=== PATIENT | male | born 1945 | race Caucasian/White ===

== ENCOUNTER 2017-05-19 20:05 | Emergency (ER) | payer MEDICARE ==
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
[2017-05-19] MEDS ORDERED: ASPIRIN 81 MG TAB.CHEW PO ONE (20:20)
[2017-05-19] MEDS ORDERED: ASPIRIN 81 MG TAB.CHEW ONE (20:26)
[2017-05-19 20:40] LABS: Hematocrit 43.6 % (42.0-52.0); Hemoglobin 14.5 gm/dL (13.5-18.0); Mean Cell Volume 93.6 fl (78-100); Mean Corpuscular Hemoglobin 31.1 pg (27-31); Mean Corpuscular Hgb Conc 33.3 g/dl (32-36); Mean Platelet Volume 10.2 fl (6.0-9.5); Neutrophil # 6.5 K/mm3 (1.3-6.0); Neutrophil % 60.7 % (42-75.0); Platelet Count 169 K/mm3 (150-450); Red Blood Count 4.66 M/mm3 (4.7-6.0); Red Cell Distribution Width 13.5 % (11.5-14.0); White Blood Count 10.8 K/mm3 (4.0-10.5)
[2017-05-19 21:00] LABS: ALT 20 U/L (19-67); AST 12 U/L (0-48); Albumin * 3.4 gm/dl (3.4-5.0); Alkaline Phosphatase * 62 U/L (50-170); Anion Gap 13.2 mmol/L (6.8-13.8); BUN/Creatinine Ratio 18.4 (9.0-21.6); Bilirubin, Total 0.2 mg/dL (0.0-1.1); Blood Urea Nitrogen 21 mg/dL (6-23); Ca. Corrected For Albumin 8.8 mg/dL (8.4-10.2); Calcium * 8.6 mg/dL (7.9-10.9); Carbon Dioxide 30.1 mmol/L (24-32.6); Chloride 102 mmol/L (97-106); Glucose * 111 mg/dL (70-110); Potassium 4.3 mmol/L (3.4-4.6); Sodium 141 mmol/L (132-142); Total Protein 6.9 gm/dL (6.2-8.2)
[2017-05-19 21:01] LABS: Troponin I Less than 0.017 ng/ml (0.00-0.10)
[2017-05-19 22:23] VITALS: BP 132/70
[2017-05-19] MEDS ORDERED: NAPROXEN SODIUM 550 MG TABLET PO ONE (22:26)
[2017-05-19] MEDS ORDERED: NAPROXEN SODIUM 550 MG TABLET ONE (22:30)
== END 2017-05-19 22:47 | disposition home or self-care (01) ==
LOC: ER 20:05
DX: R07.89 Other chest pain (principal)

== ENCOUNTER 2018-03-08 17:07 | Observation (INO) ==
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
[2018-03-08 18:20] LABS: Hematocrit 46.1 % (42.0-52.0); Hemoglobin 14.9 gm/dL (13.5-18.0); Mean Cell Volume 97.3 fl (78-100); Mean Corpuscular Hemoglobin 31.4 pg (27-31); Mean Corpuscular Hgb Conc 32.3 g/dl (32-36); Mean Platelet Volume 10.2 fl (8-11.3); Neutrophil # 7.1 K/mm3 (1.3-6.0); Neutrophil % 68.9 % (42-75.0); Platelet Count 183 K/mm3 (150-450); Red Blood Count 4.74 M/mm3 (4.7-6.0); Red Cell Distribution Width 13.5 % (11.5-14.0); White Blood Count 10.2 K/mm3 (4.0-10.5)
[2018-03-08 18:31] LABS: Albumin * 3.4 gm/dl (3.4-5.0); Anion Gap 8.7 mmol/L (6.8-13.8); Bilirubin, Total 0.4 mg/dL (0.0-1.1); CRP 3.4 mg/dL (0.0-0.9); Ca. Corrected For Albumin 8.7 mg/dL (8.4-10.2); Calcium * 8.5 mg/dL (7.9-10.9); Carbon Dioxide 33.3 mmol/L (24-32.6); Total Protein 7.4 gm/dL (6.2-8.2)
[2018-03-08] MEDS ORDERED: NORMAL SALINE 1,000 ML IV ONE (18:41)
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
[2018-03-08] MEDS: NORMAL SALINE 1,000 ML IV PRN (20:19)
[2018-03-08] MEDS ORDERED: VANCOMYCIN HCL 1 GM in DEXTROSE 5 % IN WATER 250 ML IV SCH ×2 (21:00)
[2018-03-09] MEDS: NORMAL SALINE 1,000 ML IV PRN (04:50)
[2018-03-09] MEDS ORDERED: VANCOMYCIN HCL 1.5 GM in DEXTROSE 5 % IN WATER 500 ML IV SCH ×2 (09:00)
[2018-03-09] MEDS ORDERED: LISINOPRIL 5 MG TABLET PO SCH (09:00)
--- NOTE | 2018-03-09 12:52 | CONS ---
[facility] - General Date of Service: 03/09/18 Narrative: Patient is a 72 year old male, who initially presented to the Emergency Department due to swelling, redness and drainage to the left lower leg. He was then admitted to the hospital due to cellulitis, venous stasis ulcer and hypertension. The patient states he has experienced redness, swelling and drainage to the left lower leg for 5-6 years. He does not seek medical care for these symptoms, however recently they were worsening. He typically treats the areas with coconut oil, epsome salts and an additional cream that he does not know the name of. It appears he was advised to wear compression stockings in the past, but he states that he does not wear them. He denies pain in his leg today. He continues with IV antibiotics. Source: patient Exam Limitations: no limitations - History of Present Illness Timing/Duration: getting worse Allergies/Adverse Reactions: Allergies No Known Allergies Allergy (Verified 03/08/18 17:16) Home Medications: Home Medications Medication Instructions Recorded Last Taken NK 03/08/18 Unknown Medications - Medications Current Medications: Current Medications Sodium Chloride (Sodium Chloride 0.9%) 1,000 mls @ 126 mls/hr IV .[id number] PRN PRN Reason: HYDRATION Last Admin: 03/09/18 04:50 Dose: 126 mls/hr Vancomycin HCl 1.5 gm/ (Dextrose/Water) 500 mls @ 140 mls/hr IV Q12H [facility]; Protocol Stop: 04/08/18 09:01 Last Admin: 03/09/18 10:02 Dose: 140 mls/hr Lisinopril (Zestril) 5 mg PO DAILY [facility] Stop: 04/08/18 09:01 Last Admin: 03/09/18 10:01 Dose: 5 mg Review of Systems - Review of Systems Generalized/Overall Review: Absent: Chills EENTM: Absent: Nose Congestion Respiratory: Absent: Cough, Shortness of Breath Cardiac: Absent: Chest Pain Abdominal: Absent: Nausea, Vomiting Musculoskeletal: Present: Muscle Pain Neurological: Absent: Headache, Numbness, Tingling Skin: Present: Lesions Physical Examination - Exam Vital Signs: Vital Signs - Last Taken Temp 37.2 C 03/09/18 08:41 Pulse 82 03/09/18 10:01 Resp 20 03/09/18 08:41 BP 156/86 H 03/09/18 10:01 Pulse Ox 96 03/09/18 08:41 O2 Oxygen Delivery Method Room Air Constitutional: Present: Alert, Oriented x3, No distress, Morbidly obese ENT Exam: Present: hearing grossly normal Peripheral Pulses: dorsalis-pedis (L): 0 - difficult to obtain due to edema Extremity: Present: lower extremity edema, other - the left lower leg has 2+ edema, erythema and multiple fluid filled blisters. there is an area ~1cm in circumference that is open and draining. this is a superficial ulcer. the erythema remains inside the marked area. Skin Exam: Present: warm/dry - Results and Findings: Narrative: Recommend using Aquacel Ag to the blistered areas on the left lower leg. This will be covered with gauze and secured with tape. The dressing will be changed daily, and recommend washing the leg with hibicleanse at dressing changes. The patient will also wear two layers of tubigrip to the left lower leg at all times. He will benefit from compression stockings when discharged. This was discussed at length with the patient. Lab/Microbiology results last 24 hrs: Abnormal/Pending Laboratory Last 24 HRS 03/08/18 03/08/18 03/08/18 18:00 18:00 18:00 MCH Immature Gran % (Auto) Immature Gran # (Auto) Lymphocytes % Neutrophils # ESR 21 H Sodium 143 H Plasma Sodium 143 H Carbon Dioxide 33.3 H Random Glucose 116 H Lactic Acid, Venous 2.5 H* C-Reactive Prot, Quant 3.4 H 03/08/18 18:00 MCH 31.4 H Immature Gran % (Auto) 0.70 H Immature Gran # (Auto) 0.07 H Lymphocytes % 18.5 L Neutrophils # 7.1 H ESR Sodium Plasma Sodium Carbon Dioxide Random Glucose Lactic Acid, Venous C-Reactive Prot, Quant - Assessments/Findings (1) Cellulitis of left leg Problem: Acute (2) Venous stasis ulcer Problem: Acute
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
[2018-03-09 14:04] VITALS: BP 154/78
== END 2018-03-09 14:20 | disposition home or self-care (01) ==
LOC: ER 17:07 → MS 17:07
PROVIDERS: ADMIT Family Medicine; ATTEND Family Medicine
CPT/HCPCS: 36415; 71010; 71020; 71045; 71046; 80053; 83519; 83605; 83880; 85025; 85652; 86140; 87040; 87081; 93971; 96361; 96365; 96366; 96367; 99213; 99284; G0378

== ENCOUNTER 2018-03-17 16:37 | Observation (INO) ==
[2018-03-17 17:47] LABS: Albumin * 3.4 gm/dl (3.4-5.0); Anion Gap 9.2 mmol/L (6.8-13.8); Bilirubin, Total 0.3 mg/dL (0.0-1.1); CRP 2.1 mg/dL (0.0-0.9); Ca. Corrected For Albumin 8.9 mg/dL (8.4-10.2); Calcium * 8.7 mg/dL (7.9-10.9); Potassium 4.2 mmol/L (3.4-4.6); Total Protein 7.4 gm/dL (6.2-8.2)
[2018-03-17] MEDS ORDERED: LEVOFLOXACIN IN DEXTROSE 5 % 750 MG/150 ML BAG IV ONE (18:10)
[2018-03-17 18:12] LABS: Hematocrit 47.3 % (42.0-52.0); Hemoglobin 15.2 gm/dL (13.5-18.0); Mean Cell Volume 97.3 fl (78-100); Mean Corpuscular Hemoglobin 31.3 pg (27-31); Mean Corpuscular Hgb Conc 32.1 g/dl (32-36); Mean Platelet Volume 10.6 fl (8-11.3); Neutrophil % 62.9 % (42-75.0); Platelet Count 193 K/mm3 (150-450); Red Blood Count 4.86 M/mm3 (4.7-6.0); Red Cell Distribution Width 13.3 % (11.5-14.0); White Blood Count 9.5 K/mm3 (4.0-10.5)
[2018-03-17] MEDS ORDERED: PIPERACILLIN SODIUM/TAZOBACTAM 3.375 GM in DEXTROSE 5 % IN WATER 100 ML IV ONE ×2 (18:44)
--- NOTE | 2018-03-17 18:53 | ERNOTE ---
Lower Extremity HPI - Narrative Date of Service: 03/17/18 - General Lower Extremities Pain: leg: left Time Seen by Provider: 03/17/18 17:03 Source: patient, family Exam Limitations: no limitations - Immun/Allergies/Home Medications Immunizations: IMMUNIZATION HX Immunizations Up to Date Yes History of Influenza Vaccine Yes Hx Pneumococcal Vaccination Yes Allergies/Adverse Reactions: Allergies Allergy/AdvReac Type Severity Reaction Status Date / Time No Known Allergies Allergy Verified 03/08/18 17:16 Home Medications: HOME MEDICATIONS Cephalexin Monohydrate [Keflex] 500 mg PO BID 10 Days #20 cap 03/09/18 [Last Taken Unknown] Lisinopril [Zestril] 10 mg PO DAILY #30 tab 03/09/18 [Last Taken Unknown] Silver/Foam Bandage [Aquacel Ag Foam 4"X4" Dressing] 1 ea TP DAILY #5 bandage [Last Taken Unknown] - History of Present Illness Narrative: Patient presents to the ED for left leg redness that has worsened today. He was admitted at the end of last month for this. He has been on keflex since then but his leg was more red and weeping today with increased redness extending further up his leg. No fever noted but he has had chills. he denies CP or SOB. No abdominal pain. No trauma. Occurred: other - worsened over last 24 hours Method of Injury: Reports: no apparent injury Loss of Consciousness: Reports: no loss of consciousness Modifying Factors - (Improves): Reports: other - nothing Modifying Factors - (Worsens): Reports: other - nothing Associated Symptoms: Denies: chest pain Subsequent Symptoms: Denies: motor loss Prior Treament: Reports: recently hospitalized, currently on antibiotics Review of Systems - Review of Systems Constitutional: Present: chills ENT: Absent: sore throat Respiratory: Absent: shortness of breath Cardiology: Absent: chest pain Gastrointestinal/Abdominal: Absent: abdominal pain Skin: Present: See HPI All Other Systems: All systems neg except as marked Medical History (Last Reviewed 03/17/18 @ 17:01 by Domenic Blunt RN) Cellulitis Seasonal allergies Surgical History: Surgical History (Last Reviewed 03/17/18 @ 17:01 by Domenic Blunt RN) History of cholecystectomy History of repair of hip fracture History of shoulder surgery Family History: Family History (Last Reviewed 03/17/18 @ 17:01 by Domenic Blunt RN) Father Prostate cancer Diabetes Mother Diabetes Social History: Preferred Language Polish Do you have any holiness or Yes: babtist cultural preference? Smoking Status Never smoker Abuse History No History of abuse Psych History No pertinent hx Alcohol Use sober Drug Use none Physical Exam - Physical Exam General Appearance: Present: alert, no apparent distress Head Exam: Present: normal inspection Eye Exam: Normal inspection: bilateral, PERRL: bilateral Ears, Nose, Throat: Present: normal ENT inspection Neck: Present: normal inspection Respiratory: Present: no respiratory distress, normal breath sounds, no accessory muscle use Cardiovascular/Chest: Present: regular rate, rhythm, normal peripheral pulses Gastrointestinal/Abdominal: Present: normal bowel sounds, nontender, soft Back Exam: Absent: CVA tenderness (R), CVA tenderness (L) Extremity Exam: Present: other - there is bialteral edema, left LE has skin erosions and redness with warmth. This redness extends proximally to nearly the knee. Weeping is noted. NO abscess. Redness extends to the foot also. No suggestion of necrosis or nec fasc. Neurological Exam: Present: alert, other - no clear acute focal motor or sensory deficit Skin Exam: Present: normal color, warm/dry, other - celulitis with likely chronic skin changes left low leg. ED Progress - Results and Orders Patient's Lab Results:: I have reviewed the patient's lab results. - Vital Signs Patient's Vital Signs:: I have reviewed the patient's vital signs. Vital Signs: Vital Signs 03/17/18 16:50 Temperature 35.9 C L Pulse Rate 73 Respiratory Rate 18 Blood Pressure 155/73 H O2 Sat by Pulse Oximetry 100 - X-Ray X-Ray #1 X-Ray: tibula/fibula Interpretation: Interp. by me X-ray Comments: No acute process. No real-time radiology reads - Progress/Reassessment Chief Complaint: Lower Extremity Pain/ Injury Progress Note-Subjective: 03/17/18 18:51 D/W Dr Chong, [facility] held, will begin zosyn. I feel patient requies observation for worsening cellulitis while on oral ABx, failure of outpatient management. No suggestion of sepsis or toxicity or nec fasc at this time. Patient agreeable. Departure Clinical Impression: Cellulitis, Failure of outpatient treatment - Departure Disposition: Still a patient Condition: Fair Referrals: Edith Abreu DO [Primary Care Provider] -
--- NOTE | 2018-03-17 21:26 | HP ---
Chief Complaint - Chief Complaint Date of Service: 03/17/18 Time of Service: 21:20 Chief Complaint: 'Worsening redness of legs'. Source of HPI- Pt; reliable, ERP report. History of Present Illness: Mr. Mcleod is a 72-yr-old WM with no pertinent medical history. He was admitted to the [facility] on 03/08/18 for cellulitis of RLE and received Vancomycin IV and was discharged home on 03/09/18 with Keflex 500 mg po bid x 10 days. He was felt to have venous stasis ulcers during that admission and wound care was consulted, who recommended Aquacel Ag to the blistered areas on the left lower leg, covered with gauze and secured with tape, along with daily dressing changes. It was also recommended for him to wash the leg with hibicleanse at dressing changes and to wear two layers of tubigrip to the left lower leg at all times. Pt states that he took the antibiotic as prescribed, but he did not follow through with the care of his BLE. He says that he never got any prescription for the dressings. He has been washing his legs with soap and applying bandage. He has a neighbour friend who is an Rn who urged him to seek medical care for concerns of Cellulitis. Pt's states that the LT leg has been more tender and weeping alot. He denies fevers and chills. At the ED, the labwork was mostly unremarkable. CRP was 2.1 compared to 3.4 on previous admission. No acute abnormality of the LT tibia/fibula x-ray. Pt will be admitted for failure to outpatient treatment for cellulitis and will need reinforcement teaching on wound cares along with coordination of [facility] services at discharge. Medical History (Last Reviewed 03/17/18 @ 20:05 by Ja Rivas RN) Cellulitis Seasonal allergies Surgical History: Surgical History (Last Reviewed 03/17/18 @ 20:05 by Ja Rivas RN) History of cholecystectomy History of repair of hip fracture History of shoulder surgery Family History: Family History (Last Reviewed 03/17/18 @ 20:05 by Ja Rivas RN) Father Prostate cancer Diabetes Mother Diabetes Social History: Patient Lives/Resources Home Utilized Occupation Retired Preferred Language Kazakh Do you have any tenriism or No cultural preference? Smoking Status Never smoker Have you smoked in the past 12 No months Do you dip or chew tobacco No Abuse History No History of abuse Psych History No pertinent hx Alcohol Use sober Drug Use none Review Of Systems (GEN) - Review of Systems Generalized/Overall Review: Present: Chills, Fever. Absent: Weakness, Malaise, Diaphoresis EENTM: Absent: Eye Pain, Blurred Vision, Tearing Respiratory: Absent: Cough, Shortness of Breath, Orthopnea Cardiac: Absent: Chest Pain, Edema, Palpitations Abdominal: Absent: Nausea, Vomiting, Hematemesis, Abdominal Pain, Constipation Genitourinary: Absent: Burning, Itching, Urgency Musculoskeletal: Absent: Joint Pain, Back Pain, Joint Swelling Neurological: Absent: Headache, Anxiety, Depressed, Emotional Problems, Numbness Skin: Present: Lesions, Other. Absent: Dryness, Bruising Endocrine: Absent: Intolerance to Cold, Flushing, Increased Thirst Misc: All systems neg except as marked Immunizations: IMMUNIZATION HX Immunizations Up to Date Yes History of Influenza Vaccine Yes Hx Pneumococcal Vaccination Yes Allergies/Adverse Reactions: Allergies Allergy/AdvReac Type Severity Reaction Status Date / Time No Known Allergies Allergy Verified 03/08/18 17:16 Home Medications: HOME MEDICATIONS Cephalexin Monohydrate [Keflex] 500 mg PO BID 10 Days #20 cap 03/09/18 [Last Taken 03/17/18] Lisinopril [Zestril] 10 mg PO DAILY #30 tab 03/09/18 [Last Taken 03/17/18] Silver/Foam Bandage [Aquacel Ag Foam 4"X4" Dressing] 1 ea TP DAILY #5 bandage [Last Taken Unknown] Exam - Exam Vital Signs: Vital Signs - Last Taken Temp 36.8 C 03/17/18 19:45 Pulse 69 03/17/18 19:45 Resp 18 03/17/18 19:45 BP 186/82 H 03/17/18 19:45 Pulse Ox 100 03/17/18 19:45 Constitutional: Present: Alert, Oriented x3, Cooperative, No distress ENT Exam: Present: normal ENT inspection, hard of hearing Eye Exam: bilateral eye: normal inspection, PERRL Neck: Present: non-tender, full range of motion, supple Back Exam: Present: normal inspection, no CVA tenderness Breasts: Present: Exam deferred Respiratory: Present: No rales, No wheezing Cardiovascular/Chest: Present: normal peripheral pulses, regular rate, rhythm, no chest tenderness, edema Abdomen: Present: Normal bowel sounds, obese, firm /Rectal: Present: Exam deferred Extremity: Present: lower extremity edema Skin Exam: Present: other - Erythema on BLE Lymphatic: Present: no adenopathy Neurologic: Present: alert, normal mood/affect Appearance: Present: appropriate appearance, appropriate insight Eye contact: Present: cooperative, good eye contact, normal speech Thoughts: Present: normal thought pattern, no apparent hallucination Diagnostic Studies: Abnormal Lab Results 03/17/18 03/17/18 Range/Units 17:28 17:28 MCH 31.3 H (27-31) pg Immature Gran # (Auto) 0.04 H (0.000-0.0310) K/mm3 Monocytes % 9.8 H (0.0-9) % Sodium 143 H (132-142) mmol/L Plasma Sodium 143 H (130-142) mmol/L C-Reactive Prot, Quant 2.1 H (0.0-0.9) mg/dL Laboratory Results WBC 9.5 K/mm3 (4.0-10.5) 03/17/18 17:28 RBC 4.86 M/mm3 (4.7-6.0) 03/17/18 17:28 Hgb 15.2 gm/dL (13.5-18.0) 03/17/18 17:28 Hct 47.3 % (42.0-52.0) 03/17/18 17:28 MCV 97.3 fl (78-100) 03/17/18 17:28 MCH 31.3 pg (27-31) H 03/17/18 17:28 MCHC 32.1 g/dl (32-36) 03/17/18 17:28 RDW 13.3 % (11.5-14.0) 03/17/18 17:28 Plt Count 193 K/mm3 (150-450) 03/17/18 17:28 MPV 10.6 fl (8-11.3) 03/17/18 17:28 Immature Gran % (Auto) 0.40 % (0.001-0.429) 03/17/18 17:28 Immature Gran # (Auto) 0.04 K/mm3 (0.000-0.0310) H 03/17/18 17:28 Neutrophils % 62.9 % (42-75.0) 03/17/18 17:28 Lymphocytes % 23.6 % (20-51) 03/17/18 17:28 Monocytes % 9.8 % (0.0-9) H 03/17/18 17:28 Eosinophils % 2.7 % (0.0-3.0) 03/17/18 17:28 Basophils % 0.6 % (0.0-1.0) 03/17/18 17:28 Nucleated RBC % 0.0 k/mm3 (0-1) 03/17/18 17:28 Neutrophils # 6.0 K/mm3 (1.3-6.0) 03/17/18 17:28 Lymphocytes # 2.25 k/mm3 (1.5-3.5) 03/17/18 17: Monocytes # 0.9 k/mm3 (0.0-1.0) 03/17/18 17: Eosinophils # 0.3 k/mm3 (0.0-0.7) 03/17/18 17: Absolute Basophils 0.1 k/mm3 (0.0-0.1) 03/17/18 17:28 Sodium 143 mmol/L (132-142) H 03/17/18 17:28 Plasma Sodium 143 mmol/L (130-142) H 03/17/18 17:28 Potassium 4.2 mmol/L (3.4-4.6) 03/17/18 17:28 Chloride 106 mmol/L (97-106) 03/17/18 17: Carbon Dioxide 32.0 mmol/L (24-32.6) 03/17/18 17:28 Anion Gap 9.2 mmol/L (6.8-13.8) 03/17/18 17:28 BUN 16 mg/dL (6-23) 03/17/18 17:28 Creatinine 1.00 mg/dL (0.4-1.4) 03/17/18 17:28 Est GFR (Non-Af Amer) 78 mL/min (60-130) 03/17/18 17:28 BUN/Creatinine Ratio 16.0 (9.0-21.6) 03/17/18 17:28 Random Glucose 96 mg/dL (70-110) 03/17/18 17:28 Lactic Acid, Venous 1.0 mmol/L (0.4-2.0) 03/17/18 17: Calcium 8.7 mg/dL (7.9-10.9) 03/17/18 17: Calcium Adj for Albumin 8.9 mg/dL (8.4-10.2) 03/17/18 17: Total Bilirubin 0.3 mg/dL (0.0-1.1) 03/17/18: AST 24 U/L (0-48) 03/17/18 17: ALT 34 U/L (19-67) 03/17/18 17: Alkaline Phosphatase 68 U/L (50-170) 03/17/18: C-Reactive Prot, Quant 2.1 mg/dL (0.0-0.9) H 03/17/18 17: Total Protein 7.4 gm/dL (6.2-8.2) 03/17/18 17: Albumin 3.4 gm/dl (3.4-5.0) 03/17/18 17:28 Assessment/Plan - Assessment/Plan (1) Cellulitis Assessment: likely precipitated by poor compliance to wound care/venous stasis ulcers. Will cover with IV Vancomycin for now due to the progression of the erythema/ inadequate response to oral ax, fissuring & maceration of the interdigital toes of the LEFT foot. Resume wound cares as recommended previously. Monitor CBC. Problem: Acute (2) Failure of outpatient treatment Assessment: Plan as above Problem: Acute (3) HTN (hypertension) Assessment: Stable continue lisinopril. Problem: Chronic Qualifiers: Hypertension type: essential hypertension Qualified Code(s): I10 - Essential (primary) hypertension (4) Venous stasis ulcer Assessment: Continue recommendation by wound care: wash with leg with hibicleanse, Aquacel Ag to the blistered areas on the left lower leg, cover with gauze and secured with tape. The dressing will be changed daily. The patient will also wear two layers of tubigrip to the left lower leg at all times. Will need HHC at discharge due to poor compliance with cares. Problem: Acute (5) Lymphedema of leg Assessment: Will need compression stockings. Problem: Acute Qualifiers: Laterality: left Qualified Code(s): I89.0 - Lymphedema, not elsewhere classified (6) Compliance poor Problem: Acute (7) Morbid obesity with BMI of 50.0-59.9, adult Problem: Chronic
[2018-03-17] MEDS ORDERED: HYDROcodone/ACETAMINOPHEN 1 EACH TABLET PO PRN (22:55)
[2018-03-18] MEDS ORDERED: VANCOMYCIN HCL 1.75 GM in NORMAL SALINE 500 ML IV SCH (01:00)
[2018-03-18 05:24] LABS: Hematocrit 43.8 % (42.0-52.0); Mean Cell Volume 97.3 fl (78-100); Mean Corpuscular Hemoglobin 31.1 pg (27-31); Mean Platelet Volume 10.3 fl (8-11.3); Neutrophil # 5.1 K/mm3 (1.3-6.0); Neutrophil % 59.5 % (42-75.0); Platelet Count 182 K/mm3 (150-450); Red Cell Distribution Width 13.4 % (11.5-14.0); White Blood Count 8.5 K/mm3 (4.0-10.5)
[2018-03-18] MEDS ORDERED: LISINOPRIL 10 MG TABLET PO SCH (09:00)
[2018-03-18] MEDS ORDERED: VANCOMYCIN HCL 1.5 GM in NORMAL SALINE 500 ML IV SCH (13:00)
--- NOTE | 2018-03-18 14:36 | DS ---
(1) Cellulitis Problem: Acute Qualifiers: Site of cellulitis: extremity Site of cellulitis of extremity: lower extremity Laterality: left Qualified Code(s): L03.116 - Cellulitis of left lower limb (2) Failure of outpatient treatment Problem: Acute (3) HTN (hypertension) Problem: Chronic Qualifiers: Hypertension type: essential hypertension Qualified Code(s): I10 - Essential (primary) hypertension (4) Morbid obesity with BMI of 50.0-59.9, adult Problem: Chronic (5) Lymphedema of leg Problem: Chronic Qualifiers: Laterality: left Qualified Code(s): I89.0 - Lymphedema, not elsewhere classified (6) Venous stasis ulcer Problem: Chronic Description of Stay: Mac Mcleod is a 72-yr-old WM with no pertinent medical history who was admitted for increase leg swelling and redness on 03/17/2018. He was admitted to the [facility] on 03/08/18 for cellulitis of RLE and received Vancomycin IV and was discharged home on 03/09/18 with Keflex 500 mg po bid x 10 days. He was felt to have venous stasis ulcers during that admission and wound care was consulted , who recommended Aquacel Ag to the blistered areas on the left lower leg, covered with gauze and secured with tape, along with daily dressing changes. It was also recommended for him to wash the leg with hibicleanse at dressing changes and to wear two layers of tubigrip to the left lower leg at all times. Pt states that he took the antibiotic as prescribed, but he did not follow through with the care of his BLE. He says that he never got any prescription for the dressings. He has been washing his legs with soap and applying bandage. He has a neighbour friend who is an Rn who urged him to seek medical care for concerns of Cellulitis. Pt's states that the LT leg has been more tender and weeping alot. He denies fevers and chills. At the ED, the labwork was mostly unremarkable. CRP was 2.1 compared to 3.4 on previous admission. No acute abnormality of the LT tibia/fibula x-ray. Pt will be admitted for failure to outpatient treatment for cellulitis and will need reinforcement teaching on wound cares along with coordination of [facility] services at discharge. He received a broad spectrum antibiotic. his culute is growing an alpha hemolytic strep. We will send him home today on augmentin and await for final ID and sensitivity . Will also start him on Lasix 20 mg PO QD and K rich diet. He was told to follow daily wound care as recommended by Wound Center, elevate legs wwhenever he can and wear turbigrip. Follow up with his PCP next week with a BMP. . Procedures Performed: none Results and Findings: Pending Mircobiology Results 03/17/18 17:38 Foot - Left Wound Culture - Preliminary Alpha Hemolytic Strep Lab Pending Results 03/17/18 17:28: WBC 9.5, RBC 4.86, Hgb 15.2, Hct 47.3, MCV 97.3, MCH 31.3 H, MCHC 32.1, RDW 13.3, Plt Count 193, MPV 10.6, Immature Gran % (Auto) 0.40, Immature Gran # (Auto) 0.04 H, Neutrophils % 62.9, Lymphocytes % 23.6, Monocytes % 9.8 H, Eosinophils % 2.7, Basophils % 0.6, Nucleated RBC % 0.0, Neutrophils # 6.0, Lymphocytes # 2.25, Monocytes # 0.9, Eosinophils # 0.3, Absolute Basophils 0.1 03/17/18 17:28: Sodium 143 H, Plasma Sodium 143 H, Potassium 4.2, Chloride 106, Carbon Dioxide 32.0, Anion Gap 9.2, BUN 16, Creatinine 1.00, Est GFR (Non-Af Amer) 78, BUN/Creatinine Ratio 16.0, Random Glucose 96, Calcium 8.7, Calcium Adj for Albumin 8.9, Total Bilirubin 0.3, AST 24, ALT 34, Alkaline Phosphatase 68, C-Reactive Prot, Quant 2.1 H, Total Protein 7.4, Albumin 3.4 03/17/18 17:28: Lactic Acid, Venous 1.0 03/18/18 05:10: WBC 8.5, RBC 4.50 L, Hgb 14.0, Hct 43.8, MCV 97.3, MCH 31.1 H, MCHC 32.0, RDW 13.4, Plt Count 182, MPV 10.3, Immature Gran % (Auto) 0.70 H, Immature Gran # (Auto) 0.06 H, Neutrophils % 59.5, Lymphocytes % 24.9, Monocytes % 10.4 H, Eosinophils % 3.6 H, Basophils % 0.9, Nucleated RBC % 0.0, Neutrophils # 5.1, Lymphocytes # 2.12, Monocytes # 0.9, Eosinophils # 0.3, Absolute Basophils 0.1 Discharge Location: Home Disposition: Home self-senior living Health Agency: [facility] Condition: Fair Face to Face Encounter completed per [facility] Guidelines: Yes Discharge Activity: Activity as tolerated Discharge Diet: Low salt, Low fat/chol Referrals: Edith Abreu DO [Primary Care Provider] - Additional Patient Instructions (free text): [facility] for nursing- wound cares per wound center recommendations. Fax face to face, discharge summary, and medications on discharge and call report. Wound care instructions: Recommend using Aquacel Ag to the blistered areas on the left lower leg. This will be covered with gauze and secured with tape. The dressing will be changed daily, and recommend washing the leg with hibicleanse at dressing changes. The patient will also wear two layers of tubigrip to the left lower leg at all times. He will benefit from compression stockings when discharged. Elevate legs. Diet: Follow potassium rich diet -Please make TCM appointment unless assisted discharge. Thank you! Pt already has a TCM appointment with Dr. Abreu scheduled on 03/20/2018 at 1:15pm. Thank you! Sheree @ [facility]. Prescriptions (Any new or edited meds): Amox Tr/Potassium Clavulanate [Augmentin 875-125 Tablet] 875 mg PO Q12H #20 tab Furosemide [Lasix] 20 mg PO DAILY #15 tab HYDROcodone/ACETAMINOPHEN [[place] 5-325] 1 ea PO Q4H PRN #20 tab PRN Reason: Mild Pain (Pain Scale 1-3) Complete Home Medications List: Complete Home Medication List: Lisinopril [Zestril] 10 mg PO DAILY #30 tab 03/09/18 Silver/Foam Bandage [Aquacel Ag Foam 4"X4" Dressing] 1 ea TP DAILY #5 bandage Amox Tr/Potassium Clavulanate [Augmentin 875-125 Tablet] 875 mg PO Q12H #20 tab 03/18/18 Furosemide [Lasix] 20 mg PO DAILY #15 tab 03/18/18 HYDROcodone/ACETAMINOPHEN [[place] 5-325] 1 ea PO Q4H PRN #20 tab 03/18/18
[2018-03-18 17:18] VITALS: BP 165/80
== END 2018-03-18 17:19 | disposition home health service (06) ==
LOC: MS 16:37 → ER 16:37 → MS 19:36
PROVIDERS: ADMIT Internal Medicine; ATTEND Internal Medicine
DX: B95.2 Enterococcus as the cause of diseases classified elsewhere; Z68.43 Body mass index [BMI] 50.0-59.9, adult; L03.116 Cellulitis of left lower limb; I87.8 Other specified disorders of veins; Z91.19 Patient's noncompliance with other medical treatment and regimen; E66.01 Morbid (severe) obesity due to excess calories; I10 Essential (primary) hypertension; L97.829 Non-pressure chronic ulcer of other part of left lower leg with unspecified severity
CPT/HCPCS: 36415; 73590; 80053; 83605; 85025; 86140; 87040; 87070; 87077; 87186; 96365; 96366; 96367; 99284; G0378